=== PATIENT | female | born 1935 | race American Indian/Alaskan Native ===

== ENCOUNTER 2018-04-08 21:47 | Emergency (ER) | payer MEDICAID, MEDICARE ==
[2018-04-08 22:13] VITALS: TEMP 98.7
[2018-04-08] MEDS ORDERED: Tmp-Smz 800 mg-160 mg DS Tab PO STA (22:32)
--- NOTE | 2018-04-08 22:33 | C.PDOC ---
History Of Present Illness 82-year-old female presents to the ED for evaluation of an erythematous and pruritic lesion to her left medial ankle/foot region, where she sustained a bug bite. Patient notes she has been scratching the area and lanced it with a needle. Patient denies fever, chills. Time Seen by Provider: 04/08/18 22:27 Chief Complaint (Nursing): Abnormal Skin Integrity History Per: Patient History/Exam Limitations: no limitations Onset/Duration Of Symptoms: Days Current Symptoms Are (Timing): Still Present Additional History Per: Patient Past Medical History Reviewed: Historical Data, Nursing Documentation, Vital Signs Vital Signs: Last Vital Signs Temp 98.7 F 04/08/18 22:40 Pulse 73 04/08/18 22:40 Resp 16 04/08/18 22:40 BP 158/90 H 04/08/18 22:40 Pulse Ox 97 04/08/18 22:40 - Medical History PMH: HTN Surgical History: No Surg Hx Family History: States: Unknown Family Hx - Social History Hx Alcohol Use: No Hx Substance Use: No Review Of Systems Constitutional: Negative for: Fever, Chills Skin: Positive for: Other (erythematous and pruritic lesion to left foot) Physical Exam - Physical Exam Appears: Non-toxic, No Acute Distress Skin: Warm, Dry, Other (small crusting, weeping, 6x6cm area of cellulitis ) Head: Atraumatic, Normacephalic Eye(s): bilateral: Normal Inspection Oral Mucosa: Moist Neck: Supple Extremity: Normal ROM, Capillary Refill (less than 2 seconds ) Neurological/Psych: Oriented x3, Normal Speech, Normal Cognition ED Course And Treatment O2 Sat by Pulse Oximetry: 97 (on RA) Pulse Ox Interpretation: Normal Progress Note: Bactrim PO and Motrin PO given. Medical Decision Making Medical Decision Making: small area of cellulitis L medial foot/ankle area no bony involvement Cunningham allergic and ? MRSA risk Disposition Doctor Will See Patient In The: Office Counseled Patient/Family Regarding: Studies Performed, Diagnosis - Disposition Referrals: Joellen Pittman MD [Staff Provider] - Disposition: HOME/ ROUTINE Disposition Time: 22:33 Condition: GOOD Additional Instructions: Bactrim DS (antibiotic tablet) 1 tab every 12 hours to complete 5 days Motrin as needed for local discomfort warm compresses to the area as needed follow-up with you PMD as needed in 2-3 days. Prescriptions: Sulfamethoxazole/Trimethoprim [Bactrim DS 800 mg-160 mg] 1 tab PO BID #9 tab Instructions: Cellulitis (Skin Infection), Adult (DC) Forms: [employer] ([place]an) - Clinical Impression Clinical Impression: Skin lesion - Scribe Statement The provider has reviewed the documentation as recorded by the Scribe (Gillian Johns) Provider Attestation: All medical record entries made by the Scribe were at my direction and personally dictated by me. I have reviewed the chart and agree that the record accurately reflects my personal performance of the history, physical exam, medical decision making, and the department course for this patient. I have also personally directed, reviewed, and agree with the discharge instructions and disposition.
[2018-04-08] MEDS ORDERED: Tmp-Smz 800 mg-160 mg DS Tab ONE (22:43)
[2018-04-08 23:29] VITALS: BP 158/90; PULSE 73; RESP 16; O2SAT 97
== END 2018-04-08 22:40 | disposition home or self-care (01) ==
LOC: C.ER 21:47
DX: L98.8 Other specified disorders of the skin and subcutaneous tissue (principal)